=== PATIENT | male | born 1945 | race Caucasian/White ===

== ENCOUNTER 2020-04-11 14:20 | Outpatient (CLI) | payer MEDICARE, SELFPAY ==
--- NOTE | 2020-04-11 15:04 | ECG_ITS ---
Measurements Intervals [place] Rate: 69 P: 28 MT: 180 QRS: -13 QRSD: 94 T: 25 QT: 378 QTc: 406 Interpretive Statements SINUS RHYTHM EARLY PRECORDIAL R/S TRANSITION BORDERLINE ECG Electronically Signed On 04-11-2020 16:00:53 CDT by Edgar Muniz D.O.
== END 2020-04-11 14:21 | disposition home or self-care (01) ==
PROVIDERS: PCP Internal Medicine; Visit Provider Urology
DX: N21.0 Calculus in bladder (principal); I10 Essential (primary) hypertension; Z01.818 Encounter for other preprocedural examination; R94.31 Abnormal electrocardiogram [ECG] [EKG]
CPT/HCPCS: 87077; 87086; 87088; 87186; 93005

== ENCOUNTER 2020-04-16 00:34 | Outpatient (CLI) | payer MEDICARE, SELFPAY ==
[2020-04-16 16:39] LABS: SARS-CoV-2 RNA PCR Negative
== END 2020-04-16 00:35 | disposition home or self-care (01) ==
LOC: ANHCOVIDDT 00:34
PROVIDERS: PCP Internal Medicine; Visit Provider Urology
DX: Z01.812 Encounter for preprocedural laboratory examination (principal); Z20.828 Contact with and (suspected) exposure to other viral communicable diseases
CPT/HCPCS: 87635; C9803; U0003

== ENCOUNTER 2020-04-18 02:17 | Day surgery (SDC) | payer MEDICARE, SELFPAY ==
[2020-04-05 15:14] VITALS: BMI 31.8
[2020-04-18] VITALS (9 sets, daily range): BP systolic 120–157; BP diastolic 64–93; PULSE 55–70; RESP 10–19; TEMP 36.2–36.6; O2SAT 98–100
--- NOTE | 2020-04-18 10:03 | WPDANESEPPF ---
Anes - Initial Pre Proc Eval Procedure: Operation Date: 04/18/20 12:00 Proposed Procedures p Urolift - Molly Nunn MD s Cystoscopy, Removal Of Bladder Stones - Molly Nunn MD Date/Time: 04/18/20 10:03 Surgeon: Molly Nunn MD Pre Op Diagnosis: BPH Patient Data Age: 75 Gender: M Height: 1.75 m Weight: 97.72 kg Allergies Allergy/AdvReac Type Severity Reaction Status Date / Time Penicillins AdvReac Unknown Unknown Verified 04/18/20 10:19 Home Medications Medication Instructions Recorded Confirmed Type cholecalciferol (vitamin D3) 125 mcg PO DAILY 04/05/20 04/18/20 History [Vitamin D3] diltiazem HCl 240 mg PO DAILY 04/05/20 04/18/20 History quetiapine 300 mg PO HS 04/05/20 04/18/20 History tamsulosin 0.4 mg PO DAILY 04/05/20 04/18/20 History testosterone cypionate 200 mg [id number] 04/05/20 04/18/20 History vilazodone [Viibryd] 20 mg PO DAILY 04/05/20 04/18/20 History sulfamethoxazole-trimethoprim 1 tablet BID 04/18/20 04/18/20 History Patient hx anesthesia problems: none Family hx anesthesia problems: none [facility] Past Medical History Medical History (Updated 04/18/20 @ 08:28 by Sathish Solares DO) Bipolar disorder BPH (benign prostatic hyperplasia) Hypertension Social History Social History Smoking status: Never smoker Alcohol intake: current Drinks per week: 2 Alcohol use details: 2 beers Substance use: never Living arrangements: with family Spiritual care concerns: No Anes - Eval Final PreProcedure Day of Procedure 04/18/20 10:03 Patient weight: obese Heart: regular rate and rhythm Lungs: clear to auscultation and normal air movement Airway: Mallampati scale Neurological: alert and oriented Last oral intake: >/= 8 hours ASA classification: III Emergent: no Anesthetic plan: proceed Anesthesia type and monitoring: general LMA and standard monitoring Informed Consent: The patient's anesthetic plan and its attendant risks and benefits were discussed with the patient/family/POA. Questions were solicited and answers provided to the satisfaction of the patient/family/POA.
[2020-04-18] MEDS: ACETAMINOPHEN 500 MG TABLET 1000 MG PO (10:13)
[2020-04-18] MEDS: LACTATED RINGERS 1,000 ML 30 ML IV CONT ×2 (10:40→13:26)
--- NOTE | 2020-04-18 12:27 | WPDHPUPDATE1 ---
History and Physical Update Update Date/Time: 04/18/20 12:27 History and Physical has been reviewed, including an updated exam of the patient. There are NO changes in the patient's condition. Risks, benefits, and alternatives have been discussed and questions answered. Patient agrees to proceed with procedure.
[2020-04-18] MEDS: ceFAZolin 2 GM/D5W 50 ML 2 GM/50 ML BAG IVPB (12:32)
[2020-04-18] MEDS: LIDOCAINE HCL 2% GEL UROJET 10 ML PKG MUCOUS MEM (12:32)
--- NOTE | 2020-04-18 13:25 | PM.PROC ---
Procedure Note - Detailed Date of procedure: 04/18/20 Pre-op diagnosis: BPH Procedure performed: cystoscopy bladder stone removal Urolift x 4 implants Description of procedure: Informed consent was obtained. Patient taken the operating. He was placed in dorsal position. Prepped and draped in a sterile fashion. We tried a 20 F rigid cystoscope via urethra into the bladder. The patient had bilobar prostatic hyperplasia with a trabeculated bladder and multiple bladder stones. We then removed multiple smaller stones through the scope. We then exchanged to Urolift scope. We used the left prostate just proximal to the verumontanum his 1st treatment site. Compressing the anterior prostate laterally for [id number]? we then deployed the needle which passed through the prostate to the capsule we then deployed the capsular tab and tensioned the tab with the urethral end piece. The device sat nicely. We then repeated the identical procedure in the right dear want him and again on the right and left side 2cm distal to the bladder neck. We then inserted the visual acid crane operator and there was a nice anterior channel. No additional implants were needed. At this point I was able to visualize an additional stone in the bladder that was approximately 1cm in size, it was likely underneath the bladder neck before the urolith was placed. I then grasped this with a 0 tip basket and pulled out to the distal urethra where it was stuck we therefore passed [place] sounds from 18 to 24 F dilating the meatus and allowing for removal of the stone. All stones were sent as specimen. We then reinserted the cystoscope. The anterior channel was nicely present with the UroLift tabs in place. There was [id number] bleeding from the UroLift treatment sites. There were no additional stones in the bladder or urethra. I then inserted a 18 F coude catheter with return of pink urine. Patient is willing to recovery room in stable condition. Surgeon: Molly Nunn MD Drains: Yes (18F coude cabrera) Pathology: yes Complications: No immediate complications Condition: stable Disposition: PACU
[2020-04-18] MEDS: fentaNYL CITRATE INJ (*CRX) 100 MCG/2 ML VIAL 25 MCG IV PUSH ×2 (13:49→13:56)
== END 2020-04-18 16:10 | disposition home or self-care (01) ==
PROVIDERS: PCP Internal Medicine; Visit Provider Urology
PROC: 0T7D8DZ Dilation of Urethra with Intraluminal Device, Via Natural or Artificial Opening Endoscopic (ICD-10-PCS; CPT 52441; principal; 2020-04-18 12:00)
PROC: 0TCB8ZZ Extirpation of Matter from Bladder, Via Natural or Artificial Opening Endoscopic (ICD-10-PCS; CPT 52352; 2020-04-18 12:00)
DX: N40.1 Benign prostatic hyperplasia with lower urinary tract symptoms (principal); N32.89 Other specified disorders of bladder; N21.0 Calculus in bladder; N52.8 Other male erectile dysfunction; E29.1 Testicular hypofunction; N13.8 Other obstructive and reflux uropathy
CPT/HCPCS: C9740; 82365; 88300; A9270; J0690; J1100; J2405; J2704; J3010; J7120; L8699

== ENCOUNTER 2022-09-25 11:45 | Day surgery (SDC) | payer MEDICARE, SELFPAY ==
[2022-09-25] VITALS (10 sets, daily range): BP systolic 135–159; BP diastolic 70–94; PULSE 59–94; RESP 10–16; TEMP 36.4–36.6; O2SAT 97–100
--- NOTE | ~2022-09-25 | CT_ITS ---
Non-contrast CT scan of the Abdomen and Pelvis Clinical indication: Kidney stone Technique: 5 mm axial scans were obtained through the abdomen and pelvis without intravenous or oral contrast. Dose reduction technique was used on this scan by utilizing automated exposure control and iterative reconstruction technique. The dose-length product (DLP) was 378.11 mGy-cm. Findings: Images through the lung bases reveal no abnormalities. There is no evidence of renal or ureteral calculi. The kidneys and the ureters are nondilated. Hepatic cyst present. Cholecystectomy clips present. The spleen, pancreas, and adrenals appear normal . There is no aortic aneurysm. There is no evidence of bowel obstruction. Images through the pelvis were performed. There is no evidence of ascites or lymphadenopathy. 1.1 cm urinary bladder stone present. Probable additional punctate urinary bladder stone present. Mild fulln ess of the bilateral ureters may be related to urinary bladder distention. Prostate gland is markedly enlarged. Additional note is made of a 1.0 cm stone at the distal urethra, just proximal to the penile meatus. Penile prosthetic pump is also present. Impression: 1.0 cm stone at the distal urethra, just proximal to the penile meatus. Urinary bladder stones, as detailed above. Mild bilateral ureteral fullness may be related to distended bladder. Consider bladder outlet obstruc tion related to the ureteral stone present or presumed BPH. Enlarged prostate gland. Reviewed, dictated and finalized at [facility]. [employer] Impression: 1.0 cm stone at the distal urethra, just proximal to the penile meatus. Urinary bladder stones, as detailed above. Mild bilateral ureteral fullness may be related to distended bladder. Consider bladder outlet obstruction related to the ureteral stone present or presumed BP H. Enlarged prostate gland.
--- NOTE | 2022-09-25 12:25 | ED.GENADULT ---
HPI - General Adult General Chief complaint: Abdominal Pain Stated complaint: kidney stone Time Seen by Provider: 09/25/22 11:58 History of Present Illness HPI narrative: 77-year-old male presented to the emergency department for evaluation of pain in the penis. Patient states that about 9 AM this morning he started having pain with urination. Patient suspects that he did pass a kidney stone but is still having penis pain. Patient also states he is having difficulty urinating. Patient does have a prior history of a penile implant and has prior history of bladder stones. Patient has previously followed up with [facility] [place] Medications Medication Instructions Recorded Confirmed cholecalciferol (vitamin D3) 125 125 mcg PO DAILY 04/05/20 04/18/20 mcg (5,000 unit) tablet (Vitamin D3) diltiazem HCl 240 mg 240 mg PO DAILY 04/05/20 04/18/20 capsule,extended release 24 hr quetiapine 300 mg tablet 300 mg PO HS 04/05/20 04/18/20 tamsulosin 0.4 mg capsule 0.4 mg PO DAILY 04/05/20 04/18/20 testosterone cypionate 200 mg/mL 200 mg [id number] 04/05/20 04/18/20 intramuscular oil vilazodone 20 mg tablet (Viibryd) 20 mg PO DAILY 04/05/20 04/18/20 sulfamethoxazole 800 1 tablet BID 04/18/20 04/18/20 mg-trimethoprim 160 mg tablet Allergies Allergy/AdvReac Type Severity Reaction Status Date / Time Penicillins AdvReac Unknown Unknown Verified 09/25/22 15:43 Review of Systems Review of Systems: CONSTITUTIONAL: Denies fever, chills, or sweats. EYES: Denies visual changes, redness, or discharge. ENT: Denies rhinorrhea, congestion, sore throat, or otalgia. CARDIOVASCULAR: Denies chest pain, palpitations, or edema. RESPIRATORY: Denies cough or dyspnea. GASTROINTESTINAL: Denies abdominal pain, nausea, vomiting, or diarrhea. GENITOURINARY: See HPI SKIN: Denies rash or itching. MUSCULOSKELETAL: Denies back pain, joint pain, or myalgia. NEUROLOGIC: Denies headache, numbness, or weakness. [facility] Past Medical History Medical History (Updated 09/25/22 @ 16:25 by Ifeanyi Moreno MD) Bipolar disorder BPH (benign prostatic hyperplasia) Hypertension SHARMIN (obstructive sleep apnea) Surgical History Surgical History (Updated 09/25/22 @ 16:07 by Topher Dinh MD) H/O arthroscopic knee surgery History of penile implant Social History Social History Smoking status: Never smoker Alcohol intake: current Drinks per week: 2 Alcohol use details: 2 beers Substance use: never Living arrangements: with family Spiritual care concerns: No Exam Narrative: APPEARANCE: Well appearing, no pain, no distress, well-nourished. HEAD: normocephalic, atraumatic. EYES: PERRLA/EOMI, conjunctivae clear. NOSE: Normal no drainage NECK: Supple. No adenopathy, no masses. RESPIRATORY: Airway patent, respirations nonlabored. Clear to auscultation bilaterally, no rales, rhonchi, wheezing. CARDIOVASCULAR: Regular rate and rhythm without murmurs rubs or gallops. ABDOMINAL: Soft, nontender, nondistended, normal bowel sounds Genitourinary: Tenderness to penis. Penis implant present. MUSCULOSKELETAL: Moves all extremities. Strength/ROM intact, No edema, No calf tenderness. NEURO: Alert. Cranial nerves II through XII intact. Good gait. Good coordination SKIN: Warm, dry. Normal Color Course Course Emergency Course: 77-year-old male with a reported urethral calculi. Patient does have a 1 cm urethral calculus by CT. Case was discussed with urology. Patient was also updated on the results of his imaging. Patient was made NPO. Patient was treated with 1 mg of IV Dilaudid and does feel improved. Urology is taking the patient to the OR for stone retrieval. Vital Signs Vital signs: Vital Signs Temperature 97.9 F 09/25/22 11:51 Pulse Rate 77 09/25/22 11:51 Respiratory Rate 16 09/25/22 11:51 Blood Pressure 159/89 H 09/25/22 11:51 Pulse Oximetry 99 09/25/22
[2022-09-25] MEDS: HYDROmorphone HCL INJ (*CRX) 1 MG/ML SYR IV PUSH ×2 (12:31→14:13)
[2022-09-25 12:46] LABS: Basophils Absolute Auto 0.1 K/mm3 (0.0-0.1); Basophils Percent Auto 0.7 % (0.2-1.2); Eosinophils Absolute Auto 0.2 K/mm3 (0-0.3); Eosinophils Percent Auto 2.3 % (0-4.4); Hematocrit 46.1 % (42.0-52.0); Hemoglobin 15.4 g/dL (14.0-18.0); Immature Granulocyte Absolute 0.02 K/mm3 (0.00-0.031); Immature Granulocyte Percent A 0.3 % (0-0.5); Lymphocytes Absolute Auto 1.95 K/mm3 (0.9-3.2); Lymphocytes Percent Auto 28.1 % (18.3-44.2); Mean Corpuscular HGB Conc 33.4 g/dl (32-36); Mean Corpuscular Hemoglobin 27.4 pg (26-34); Mean Platelet Volume 9.4 fl (7.4-10.4); Monocytes Absolute Auto 0.6 K/mm3 (0.1-0.6); Monocytes Percent Auto 8.1 % (2.6-8.5); Neutrophils Absolute Auto 4.2 K/mm3 (1.3-6.7); Neutrophils Percent Auto 60.5 % (45.5-73.1); Platelet Count Result 301 k/mm3 (150-375); Red Blood Count 5.62 M/mm3 (4.6-6.20); Red Cell Distribution Width 14.9 % (11.5-14.5); White Blood Count 6.9 K/mm3 (4.5-10.0)
[2022-09-25 13:03] LABS: Alanine Aminotransferase 33 U/L (6-50); Albumin Level 4.9 g/dL (3.5-5.1); Alkaline Phosphatase 91 U/L (38-126); Anion Gap 7 mmol/L (8-16); Aspartate Amino Transferase 37 U/L (17-59); Bilirubin,Total 0.5 mg/dL (0.2-1.3); Blood Urea Nitrogen 20 mg/dL (9-20); Carbon Dioxide 26 mmol/L (22-30); Chloride 98 mmol/L (98-107); Estimated CRCL calculation 60 ml/min; Estimated Glomerular Filt Rate > 60; Glucose 123 mg/dL (65-110); Potassium 3.8 mmol/L (3.4-5.0); Sodium 131 mmol/L (137-145)
--- NOTE | 2022-09-25 13:46 | PC.NURSE ---
pt to OR per Dr Moreno
[2022-09-25] MEDS: LACTATED RINGERS 1,000 ML 30 ML IV CONT (16:00)
--- NOTE | 2022-09-25 16:07 | WPDANESEPPF ---
Anes - Initial Pre Proc Eval Procedure: Operation Date: 09/25/22 17:00 Proposed Procedures p Cystoscopy, Urethral Stone Extraction - Ifeanyi Moreno MD Date/Time: 09/25/22 16:07 Surgeon: Ifeanyi Moreno MD Pre Op Diagnosis: kidney stone Patient Data Age: 77 Gender: M Height: 1.75 m Weight: 97.52 kg Last Vital Signs Temp 36.5 C 09/25/22 15:37 Pulse 94 09/25/22 15:37 Resp 14 09/25/22 15:37 BP 154/89 H 09/25/22 15:37 Pulse Ox 99 09/25/22 15:37 O2 Del Method Room Air 09/25/22 15:37 Allergies Allergy/AdvReac Type Severity Reaction Status Date / Time Penicillins AdvReac Unknown Unknown Verified 09/25/22 15:43 Home Medications Medication Instructions Recorded Confirmed Type cholecalciferol (vitamin D3) 125 125 mcg PO DAILY 04/05/20 04/18/20 History mcg (5,000 unit) tablet (Vitamin D3) diltiazem HCl 240 mg 240 mg PO DAILY 04/05/20 04/18/20 History capsule,extended release 24 hr quetiapine 300 mg tablet 300 mg PO HS 04/05/20 04/18/20 History tamsulosin 0.4 mg capsule 0.4 mg PO DAILY 04/05/20 04/18/20 History testosterone cypionate 200 mg/mL 200 mg [id number] 04/05/20 04/18/20 History intramuscular oil vilazodone 20 mg tablet (Viibryd) 20 mg PO DAILY 04/05/20 04/18/20 History sulfamethoxazole 800 1 tablet BID 04/18/20 04/18/20 History mg-trimethoprim 160 mg tablet Laboratory Tests 09/25/22 09/25/22 12:34 12:34 WBC 6.9 K/mm3 K/mm3 (4.5-10.0) RBC 5.62 M/mm3 M/mm3 (4.6-6.20) Hgb 15.4 g/dL g/dL (14.0-18.0) Hct 46.1 % % (42.0-52.0) MCV 82.0 fl fl (80-100) MCH 27.4 pg pg (26-34) MCHC 33.4 g/dl g/dl (32-36) RDW 14.9 % H % (11.5-14.5) Plt Count 301 k/mm3 k/mm3 (150-375) MPV 9.4 fl fl (7.4-10.4) Immature Gran % (Auto) 0.3 % % (0-0.5) Neut % (Auto) 60.5 % % (45.5-73.1) Lymph % (Auto) 28.1 % % (18.3-44.2) Barron % (Auto) 8.1 % % (2.6-8.5) Eos % (Auto) 2.3 % % (0-4.4) Baso % (Auto) 0.7 % % (0.2-1.2) Lymph # (Auto) 1.95 K/mm3 K/mm3 (0.9-3.2) Barron # (Auto) 0.6 K/mm3 K/mm3 (0.1-0.6) Eos # (Auto) 0.2 K/mm3 K/mm3 (0-0.3) Baso # (Auto) 0.1 K/mm3 K/mm3 (0.0-0.1) Abs Immat Gran (auto) 0.02 K/mm3 K/mm3 (0.00-0.031) Absolute Neuts (auto) 4.2 K/mm3 K/mm3 (1.3-6.7) Absolute Nucleated RBC 0.0 K/mm3 K/mm3 (0.0-0.012) Nucleated RBC % 0.0 % % (0.0-0.2) Sodium 131 mmol/L L mmol/L (137-145) Potassium 3.8 mmol/L mmol/L (3.4-5.0) Chloride 98 mmol/L mmol/L (98-107) Carbon Dioxide 26 mmol/L mmol/L (22-30) Anion Gap 7 mmol/L L mmol/L (8-16) BUN 20 mg/dL mg/dL (9-20) Creatinine 1.10 mg/dL mg/dL (0.7-1.3) Estim Creat Clear Calc 60 ml/min ml/min Estimated GFR > 60 (59 - ) Glucose 123 mg/dL H mg/dL (65-110) Calcium 9.0 mg/dL mg/dL (8.4-10.2) Total Bilirubin 0.5 mg/dL mg/dL (0.2-1.3) AST 37 U/L U/L (17-59) ALT 33 U/L U/L (6-50) Alkaline Phosphatase 91 U/L U/L (38-126) Total Protein 8.0 g/dL g/dL (6.3-8.2) Albumin 4.9 g/dL g/dL (3.5-5.1) Patient hx anesthesia problems: none Family hx anesthesia problems: none Results Review: All pre-operative results and documents have been reviewed as part of the pre-operative evaluation. [facility] Past Medical History Medical History (Updated 09/25/22 @ 16:07 by Topher Dinh MD) Bipolar disorder BPH (benign prostatic hyperplasia) Hypertension SHARMIN (obstructive sleep apnea) Surgical History Surgical History (Updated 09/25/22 @ 16:07 by Topher Dinh MD) H/O arthroscopic knee surgery History of penile implant Social History Social History Smoking status: Never smoker Alcohol intake: current Drinks per week: 2 Alcohol
--- NOTE | 2022-09-25 16:22 | PM.HPGS ---
History of Present Illness History of Present Illness Consent: Risks, benefits, and alternatives have been discussed and questions answered. Patient agrees to proceed with procedure. Chief complaint: kidney stone Narrative: José Miguel Gutierrez is a 77 year old male With a long history of BPH is and at least 1 prior episode of bladder stones. He presents to the ER with intense dysuria and marked obstructive voiding symptoms. Imaging reveals a distended bladder and a 1 cm stone lodged in his fossa navicularis. Does have a history of erectile dysfunction is a has had a his inflatable penile prosthesis placed in the past. Review of Systems Cardiovascular: Cardiovascular: Denies chest pain, Denies lightheadedness, Denies palpitations and Denies dyspnea Respiratory: Respiratory: Denies dyspnea Gastrointestinal: Gastrointestinal: Denies diarrhea, Denies nausea and Denies vomiting Genitourinary: Genitourinary: Reports as per HPI, Denies hematuria and Reports dysuria Endocrine: Endocrine: Denies palpitations PMFSH Past Medical History Medical History (Updated 09/25/22 @ 16:25 by Ifeanyi Moreno MD) Bipolar disorder BPH (benign prostatic hyperplasia) Hypertension SHARMIN (obstructive sleep apnea) Surgical History Surgical History (Updated 09/25/22 @ 16:07 by Topher Dinh MD) H/O arthroscopic knee surgery History of penile implant Social History Social History Smoking status: Never smoker Alcohol intake: current Drinks per week: 2 Alcohol use details: 2 beers Substance use: never Living arrangements: with family Spiritual care concerns: No Meds Home Medications and Allergies Home Medications Medication Instructions Recorded Confirmed Type cholecalciferol (vitamin D3) 125 125 mcg PO DAILY 04/05/20 04/18/20 History mcg (5,000 unit) tablet (Vitamin D3) diltiazem HCl 240 mg 240 mg PO DAILY 04/05/20 04/18/20 History capsule,extended release 24 hr quetiapine 300 mg tablet 300 mg PO HS 04/05/20 04/18/20 History tamsulosin 0.4 mg capsule 0.4 mg PO DAILY 04/05/20 04/18/20 History testosterone cypionate 200 mg/mL 200 mg [id number] 04/05/20 04/18/20 History intramuscular oil vilazodone 20 mg tablet (Viibryd) 20 mg PO DAILY 04/05/20 04/18/20 History sulfamethoxazole 800 1 tablet BID 04/18/20 04/18/20 History mg-trimethoprim 160 mg tablet Allergies Allergy/AdvReac Type Severity Reaction Status Date / Time Penicillins AdvReac Unknown Unknown Verified 09/25/22 15:43 Vital Signs Vital Signs - 24 hr 09/25/22 11:51 09/25/22 13:46 09/25/22 15:06 Temperature 97.9 F Pulse Rate 77 88 88 Respiratory Rate 16 16 16 Blood Pressure 159/89 H 142/89 H Pulse Oximetry 99 97 97 Oxygen Delivery 09/25/22 15:37 09/25/22 16:00 Temperature 97.7 F Pulse Rate 94 94 Respiratory Rate 14 14 Blood Pressure 154/89 H 154/94 H Pulse Oximetry 99 Oxygen Delivery Room Air Room Air Exam Const: General: no acute distress Resp: Effort & Inspection: normal respiratory effort GI: Inspection: non-distended GI Palp: No abdominal tenderness and No Guarding due to palpation present (GI) Auscultation: normal bowel sounds Assessment and Plan Assessment and plan (1) Urethral stone: Code(s): N21.1 - Calculus in urethra Status: Acute Assessment and Plan: Patient has a 1 cm urethral stone lodged in the fossa navicularis. Will plan cystoscopy with urethral stone extraction.
--- NOTE | 2022-09-25 16:25 | WPDHPUPDATE1 ---
History and Physical Update Update Date/Time: 09/25/22 16:25 History and Physical has been reviewed, including an updated exam of the patient. There are NO changes in the patient's condition. Risks, benefits, and alternatives have been discussed and questions answered. Patient agrees to proceed with procedure.
[2022-09-25] MEDS: ceFAZolin 2 GM/D5W 50 ML 2 GM/50 ML BAG IVPB (16:29)
[2022-09-25] MEDS: LIDOCAINE HCL 2% GEL UROJET 10 ML PKG MUCOUS MEM (16:39)
--- NOTE | 2022-09-25 17:00 | P.OP_ITS ---
Procedure Note - Detailed Date of Procedure 09/25/22 Pre-op Diagnosis Urethral stone Post-op Diagnosis Same Procedure Performed Cystoscopy, removal urethral stone Surgeon Ifeanyi Moreno MD Anesthesia General Description of Procedure Patient is brought to the operative suite where he was prepped draped in ro utine sterile fashion while in a dorsal lithotomy position. The placed 2% lidocaine jelly in the urethra allowed to stay in for an appropriate period. With dilatation of the urethral meatus and fossa navicularis using [place] sounds to 20 F I was able to extrude the stone without any trauma to the urethra. Cystoscopy with a 19 F rigid cystoscope showed no additional identifiable bladder stones. Does have significant lateral lobe hyperplasia with a 2-2.5 cm prostatic urethra Drains No Pathology Yes Complications No immediate complications Condition Stable
== END 2022-09-25 18:17 | disposition home or self-care (01) ==
LOC: ANHED 13:43 → ANHSURGERY 13:55
PROVIDERS: Emergency Medicine; Emergency Provider Emergency Medicine; PCP Internal Medicine; Visit Provider Urology
PROC: (CPT 52352; principal; 2022-09-25 16:15)
DX: N21.1 Calculus in urethra (principal); I10 Essential (primary) hypertension; G47.33 Obstructive sleep apnea (adult) (pediatric); N40.0 Benign prostatic hyperplasia without lower urinary tract symptoms; F31.9 Bipolar disorder, unspecified; Z96.0 Presence of urogenital implants
CPT/HCPCS: 52310; 36415; 74176; 80053; 82365; 85025; 88300; 96374; 96375; 99285; C1769; J0690; J1170; J2250; J2704; J3010; J7120